=== PATIENT | male | born 1940 | race Caucasian/White ===

== ENCOUNTER 2021-07-18 08:31 | Outpatient (CLI) | payer MEDICARE, OTHER ==
[2021-07-18] MEDS ORDERED: iohexol 350MG/ML 100ml bottle IV ONE (08:47)
== END 2021-07-18 23:59 | disposition home or self-care (01) ==
LOC: RAD 08:31
PROVIDERS: ATTEND Family Medicine
DX: I71.2 Thoracic aortic aneurysm, without rupture (principal); R16.1 Splenomegaly, not elsewhere classified; M43.24 Fusion of spine, thoracic region; K40.90 Unilateral inguinal hernia, without obstruction or gangrene, not specified as recurrent; N28.1 Cyst of kidney, acquired; K76.89 Other specified diseases of liver; R59.0 Localized enlarged lymph nodes
CPT/HCPCS: 71275; 74174; Q9967